=== PATIENT | male | born 1940 | race Asian ===

== ENCOUNTER 2020-07-25 08:43 | Inpatient (IN) | payer MEDICARE, MEDICAID ==
[~2020-07-25] VITALS: Ht 162.6 cm; Wt 53.2 kg
[2020-07-25] MEDS ORDERED: SODIUM CHLORIDE 0.9% 1,000 ML IV ONE (09:00)
[2020-07-25] MEDS ORDERED: cefTRIAXone 1GM/50ML D5W 50 ML IV ONE (09:45)
[2020-07-25 09:48] LABS: Basophils # (auto) 0 10 ^3/uL (0-0.2); Basophils % (auto) 0.2 % (0.0-2.0); Eosinophils # (auto) 0 10 ^3/uL (0-0.8); Eosinophils % (auto) 0.7 % (0.0-7.0); Hematocrit 31.9 % (41.0-53.0); Hemoglobin 10.8 g/dL (13.5-17.5); Lymphocytes # (auto) 0.5 10 ^3/uL (0.4-5.4); Lymphocytes % (auto) 11.4 % (10.0-50.0); Mean Corpuscular Hemoglobin 32.1 pg (28.0-32.0); Mean Corpuscular Volume 94.6 fL (80.0-100.0); Monocytes # (auto) 0.4 10 ^3/uL (0-1.3); Monocytes % (auto) 8.5 % (0.0-12.0); Neutrophils # (auto) 3.7 10 ^3/uL (1.6-8.6); Neutrophils % (auto) 79.2 % (37.0-80.0); Nucleated Red Blood Cells % 0.1 %; Platelet Count (auto) 141 10^3/uL (140-450); Red Blood Cells 3.37 10^6/uL (4.5-5.90); Red Cell Distribution Width 19.9 % (11.8-14.3); White Blood Cell 4.7 10^3/uL (4.4-10.8)
[2020-07-25 10:03] LABS: INR 1.56 (0.9-1.15); Partial Thromboplastin Time 34.7 sec (23.0-31.2)
[2020-07-25 10:12] LABS: Albumin 2.7 g/dL (3.4-5.0); Anion Gap 5 (5-15); Blood Urea Nitrogen 11 mg/dL (7-18); Carbon Dioxide 26 mmol/L (21-32); Chloride 108 mmol/L (98-107); Glucose 123 mg/dL (74-106); Sodium 139 mmol/L (136-145)
[2020-07-25 10:19] LABS: Alanine Aminotransferase 536 U/L (16-61); Alkaline Phosphatase 185 U/L (45-117); Aspartate Aminotransferase 584 U/L (15-37); BUN/Creatinine Ratio 14.3; Bilirubin, Total 6.6 mg/dL (0.2-1.0); GFR African American 126 mL/min; GFR Non-African American 104 mL/min; Total Protein 6.6 g/dL (6.4-8.2)
[2020-07-25 10:34] LABS: Potassium 4.2 mmol/L (3.5-5.1)
[2020-07-25] MEDS: SODIUM CHLORIDE 0.9% 1,000 ML IV SCH (15:15)
[2020-07-25] MEDS ORDERED: MORPHINE SULF INJ 2 MG/ML SYRINGE 1ML IV PRN (15:15)
[2020-07-25] MEDS ORDERED: ONDANSETRON HCL 4 MG/2 ML VIAL IV PRN (15:15)
[2020-07-25] MEDS ORDERED: DOCUSATE SOD 100 MG CAP PO PRN (15:15)
[2020-07-25] MEDS ORDERED: traMADol HCL 50 MG TAB PO PRN (15:15)
[2020-07-25] MEDS ORDERED: NITROGLYCERIN 0.4 MG SL TAB SL PRN (15:15)
[2020-07-25] MEDS ORDERED: IOHEXOL 300 MG/ML 100ML BOTTLE IJ ONE (15:27)
[2020-07-25 15:53] LABS: Urine Bacteria FEW /hpf (None Seen); Urine Blood 1+ /uL (Negative); Urine Mucus FEW (None Seen); Urine WBC 49 /hpf (0 - 3)
--- NOTE | 2020-07-25 17:11 | NUR ---
PATIENT ARRIVED VIA GURNEY WITH NO SIGNS OF DISTRESS OR SOB. PATIENT IS AOX1 TO NAME, PATIENT IS ABLE TO FOLLOW COMMANDS, SKIN IS INTACT, ON ROOM AIR WITH NO SIGNS OF SOB, LUNG SOUNDS THROUGHOUT ANTERIOR DIMINISHED. PATIENT HAS A FARIA IN PLACE WHICH IS DRAINING AND HUNG BELOW. PATIENT PLACED ON TELEMONITOR NUMBER [id number] SHOWING SR IN THE 80'S. WILL CONTINUE WITH POC AND MONITORING PATIENT.
[2020-07-25 17:24] VITALS: BP 151/80
--- NOTE | 2020-07-25 18:00 | NUR ---
PATIENT TRANSPORTED VIA WHEELCHAIR FOR CT ABD PELVIS WITHOUT CONTRAST. PATIENT ABLE TO STAND AND TURN WITH MINIMAL ASSISTANCE TO WHEELCHAIR. NO SIGNS OF DISTRESS OR SOB. WILL AWAIT PATIENT RETURN.
[2020-07-25 18:05] VITALS: BP 157/80
[2020-07-25] MEDS ORDERED: LACTCAP35 OR (18:26)
[2020-07-25] MEDS ORDERED: AMLO5TAB15 PO (18:26)
[2020-07-25] MEDS ORDERED: ZINC220C8 PO (18:26)
[2020-07-25] MEDS ORDERED: POLY33504 PO (18:26)
[2020-07-25] MEDS ORDERED: ACET-1156 PO (18:26)
[2020-07-25] MEDS ORDERED: MIRT15TA PO (18:26)
[2020-07-25] MEDS ORDERED: LIDO5PAD8 EXT (18:26)
[2020-07-25] MEDS ORDERED: MULT-195 OR (18:26)
[2020-07-25] MEDS ORDERED: FINA5TAB4 PO (18:26)
[2020-07-25] MEDS ORDERED: ASCO500C49 PO (18:26)
[2020-07-25] MEDS ORDERED: VITA400C49 PO (18:26)
[2020-07-25] MEDS ORDERED: MELA3TAB27 PO (18:26)
[2020-07-25] MEDS ORDERED: CRAN425C2 OR (18:26)
[2020-07-25] MEDS ORDERED: TAMS0.4C36 PO (18:26)
[2020-07-25] MEDS ORDERED: CYA100I PO (18:26)
[2020-07-25] MEDS ORDERED: DICL-176 PO (18:26)
--- NOTE | 2020-07-25 20:46 | NUR ---
MRSA spec collected Pt alert and cooperative. Tries to communicate much as he can. [place] draining orangey output.
--- NOTE | 2020-07-25 20:57 | NUR ---
No sign of distress. Able to eat sandwich independently and safely, with set up. Noted no dentures, patient dipped sandwich in his cup of water.
[2020-07-25 22:00] VITALS: BP 147/74
[2020-07-26 05:00] VITALS: BP 143/72
--- NOTE | 2020-07-26 07:30 | NUR ---
Opening Shift Note Assumed care of patient, awake and alert. Patient is AOx1 to name, able to follow commands. No S/S of distress/SOB or pain. [place] bag draining, hung below and free of kinks. Instructed on POC and to call for assist PRN, will continue to monitor for changes Q1hr and PRN. Bed is locked and in lowest position. Call light within reach.
[2020-07-26 07:34] LABS: Albumin 2.2 g/dL (3.4-5.0); Potassium 3.8 mmol/L (3.5-5.1)
[2020-07-26 07:42] LABS: BUN/Creatinine Ratio 29.1; Bilirubin, Total 5.4 mg/dL (0.2-1.0); Calcium 7.5 mg/dL (8.5-10.1); Total Protein 5.4 g/dL (6.4-8.2)
[2020-07-26 07:53] LABS: Basophils # (auto) 0 10 ^3/uL (0-0.2); Basophils % (auto) 0.7 % (0.0-2.0); Eosinophils # (auto) 0.1 10 ^3/uL (0-0.8); Eosinophils % (auto) 2.5 % (0.0-7.0); Hematocrit 26.7 % (41.0-53.0); Hemoglobin 9.2 g/dL (13.5-17.5); Lymphocytes # (auto) 0.5 10 ^3/uL (0.4-5.4); Lymphocytes % (auto) 13.7 % (10.0-50.0); Mean Corpuscular Hgb Conc. 34.5 g/dL (32.0-36.0); Mean Corpuscular Volume 95.7 fL (80.0-100.0); Monocytes # (auto) 0.4 10 ^3/uL (0-1.3); Monocytes % (auto) 9.8 % (0.0-12.0); Neutrophils # (auto) 2.7 10 ^3/uL (1.6-8.6); Neutrophils % (auto) 73.3 % (37.0-80.0); Nucleated Red Blood Cells % 0.2 %; Platelet Count (auto) 113 10^3/uL (140-450); Red Blood Cells 2.79 10^6/uL (4.5-5.90); White Blood Cell 3.7 10^3/uL (4.4-10.8)
[2020-07-26 07:54] LABS: Red Cell Distribution Width 20.2 % (11.8-14.3)
[2020-07-26 08:30] VITALS: BP 152/73
[2020-07-26] MEDS: cefTRIAXone 1GM/50ML D5W 50 ML IV SCH (09:33)
[2020-07-26] MEDS: SODIUM CHLORIDE 0.9% 1,000 ML IV SCH (09:33)
[2020-07-26] MEDS ORDERED: FAMOTIDINE 20 MG TAB PO SCH (10:00)
[2020-07-26] MEDS ORDERED: MIRT15TA PO (12:15)
--- NOTE | 2020-07-26 12:34 | NUR ---
PHONE CALL RECEIVED FROM US REGARDING GALLBLADDER US ORDERED. PATIENT NEEDS TO BE NPO FOR 8 HOURS WILL HOLD DINNER. [employer] WILL BE CONDUCTING ORDER AROUND 1900.
[2020-07-26 13:00] VITALS: BP 148/73
[2020-07-26 16:55] VITALS: BP 154/79
--- NOTE | 2020-07-26 18:44 | NUR ---
RADIOLOGY AT BEDSIDE FOR US. PATIENT REFUSED BY PUTTING BLANKET OVER HEAD AND STATING NO TO US. US TECH WILL TRY AGAIN TOMORROW. PATIENT WILL BE KEPT NPO.
[2020-07-26 21:00] VITALS: BP 160/93
[2020-07-26] MEDS ORDERED: cloNIDine HCL 0.1 MG TAB PO ONE (21:30)
--- NOTE | 2020-07-26 21:30 | NUR ---
VS check Elevated BP of 194/97, recheck: 160/93. Noted no PRN med, paged hospitalist. Ordered Clonidine 0.1 mg PO x 1 dose carried out. Patient denied pain. Tele box + cables sent to ICU for recheck/fix monitor keep reflecting zero heart rate but patient is alert with audible heart sound and bounding peripheral pulses. Skin color normal to ethnicity. Breathing with ease.
[2020-07-27] MEDS: SODIUM CHLORIDE 0.9% 1,000 ML IV SCH ×2 (00:35→17:00)
[2020-07-27 05:00] VITALS: BP 147/72
--- NOTE | 2020-07-27 07:45 | NUR ---
Opening Shift Note Assumed care of patient, awake and alert. No S/S of distress/SOB or pain. Instructed on POC and to call for assist PRN. Will continue to monitor for changes Q1hr and PRN.
[2020-07-27] MEDS: FAMOTIDINE 20 MG TAB PO SCH (09:26)
[2020-07-27] MEDS: cefTRIAXone 1GM/50ML D5W 50 ML IV SCH (09:26)
[2020-07-27 09:30] VITALS: BP 154/75
--- NOTE | 2020-07-27 10:00 | NUR ---
ULTRASOUND SPOKE WITH SEVEN FROM US RE: PATIENT TO HAVE PARACENTESIS. WILL CONSENT VIA TRANSLATION PHONE
--- NOTE | 2020-07-27 10:40 | NUR ---
RN LVN ATTEMPTED TRANSLATION OF [place] VIA BLUE TRANSLATION PHONE. PATIENT TELLING RN LVN "LOUDER, HE CAN'T HEAR." VOLUME AT HIGHEST LEVEL. PATIENT TOSSED PHONE ON SIDE OF BED. WILL ATTEMPT AGAIN
--- NOTE | 2020-07-27 10:55 | NUR ---
TRANSLATION BALL WORKER, EVAN CABRAL FOR PATIENT. PATIENT REFUSED PARACENTESIS. WILL NOTIFY
--- NOTE | 2020-07-27 11:20 | NUR ---
MD ROUNDS DR Eulalio IBARRA ROUNDING ON PATIENT. MADE AWARE PATIENT REFUSING PARACENTESIS. NO NEW ORDERS AT THIS TIME. WILL CONTINUE TO MONITOR
[2020-07-27 12:13] LABS: Hepatitis A Ab IgM Negative; Hepatitis B Core IgM Negative
[2020-07-27 12:14] LABS: Hepatitis C Antibody Negative (Negative)
--- NOTE | 2020-07-27 12:16 | NUR ---
CRITICAL LAB KRIS FROM LAB CALLED RE: PATIENT POSITIVE HEPATITIS. MADE AWARE
[2020-07-27 12:17] LABS: Hepatitis B Surface Antigen Positive (Negative)
[2020-07-27 13:00] VITALS: BP 153/87
--- NOTE | 2020-07-27 14:45 | NUR ---
MD ROUNDS DR BURRELL AT BEDSIDE
--- NOTE | 2020-07-27 14:49 | NUR ---
Pt is alert and appears oriented to self but has delayed response with some difficulty verbalizing. Information obtained from facility pt was brought in from. Pt has been residing at [facility] for about a year. Pt came was at a hospital out of the area and transferred to [facility] after discharge. Pt has no none family contacts and cannot verbalize any additional information. Contacted Meli at [facility] and faxed clinical information. Pt accepted for readmission once discharged. Addendum: 07/27/20 at 1453 by MARIELA CHING Amended: Links added.
[2020-07-27] MEDS: MEROPENEM 1GM IVPB 100 ML IV SCH ×2 (15:19→22:00)
[2020-07-27 17:00] VITALS: BP 186/92
--- NOTE | 2020-07-27 17:00 | NUR ---
B/P PATIENT B/P 186/. NO PRN MEDICATIONS IN EMAR. PAGED HOSPITALIST. AWAITING RETURN CALL
--- NOTE | 2020-07-27 17:10 | NUR ---
MD CALL DR LAZO RETURNED CALL RE: PATIENT BP 196/92. NEW ORDERS RECEIVED/WILL CARRY OUT. WILL CONTINUE TO MONITOR
[2020-07-27] MEDS: hydrALAZINE HCL 25 MG TAB PO PRN (17:50)
--- NOTE | 2020-07-27 19:35 | NUR ---
Opening Shift Note Assumed care of patient, awake and alert x 2 hard of hearing medical artist had to repeat themselves many times. No S/S of distress/SOB or pain. Tele box number matches patient all leads are in place. Bed lowered and locked side rails up x 2. Call light and bedside table are within reach. Instructed on POC and to call for assist PRN, will continue to monitor for changes Q1hr and PRN.
[2020-07-27 20:55] VITALS: BP 159/82
--- NOTE | 2020-07-27 22:28 | NUR ---
carried out order
[2020-07-27] MEDS ORDERED: LABETALOL HCL 5 MG/ML 4ML SYRINGE IV ONE (22:45)
[2020-07-28 05:37] VITALS: BP 159/82
[2020-07-28] MEDS: MEROPENEM 1GM IVPB 100 ML IV SCH ×3 (06:04→22:26)
[2020-07-28] MEDS: SODIUM CHLORIDE 0.9% 1,000 ML IV SCH (08:36)
[2020-07-28] MEDS: FAMOTIDINE 20 MG TAB PO SCH (08:36)
[2020-07-28 09:00] VITALS: BP 148/79
--- NOTE | 2020-07-28 10:15 | NUR ---
MD ROUNDS DR BURRELL AT BEDSIDE. BEARING RING ASSEMBLER PRESENT.
--- NOTE | 2020-07-28 10:40 | NUR ---
FARIA FARIA BAG CHANGED D/T LEAKING. PATIENT TOLERATED WELL
[2020-07-28 13:00] VITALS: BP 160/77
--- NOTE | 2020-07-28 13:58 | NUR ---
Nutrition Assessment Notes Please refer to link for full assessment notes. Est Energy needs: 6511-6023 kcals (30-35 kcal/kgBW) d/t elev LFTs Est Protein needs: 55-60 gms/day (1.1-1.2 gm/kgBW) d/t elev LFTs Will continue to monitor and reassess prn. Addendum: 07/28/20 at [address] Amended: Links added.
[2020-07-28 17:00] VITALS: BP 154/92
[2020-07-28] MEDS: hydrALAZINE HCL 25 MG TAB PO PRN (18:08)
--- NOTE | 2020-07-28 18:20 | NUR ---
IV insertion IV access obtained, via clean sterile technique by inserting 20 gauge catheter at LAC after 3 attempts. IV secured properly. No trauma to site. Patient tolerated well. IV removal IV pulled out with catheter fully intact while patient standing up from bedside commode. Pressure dressing applied to site. Patient tolerated well.
--- NOTE | 2020-07-28 19:55 | NUR ---
Opening Shift Note Assumed care of patient, awake and alert x 2 hard of hearing steward/stewardess night had to repeat themselves many times. No S/S of distress/SOB or pain. Tele box number matches patient all leads are in place. Bed lowered and locked side rails up x 2. Call light and bedside table are within reach. Instructed on POC and to call for assist PRN, will continue to monitor for changes Q1hr and PRN.
[2020-07-28 22:00] VITALS: BP 149/59
--- NOTE | 2020-07-28 22:09 | NUR ---
Per Andrey [employer] ACCOUNT EXECUTIVE returned page new order for HEAD CT received; entered in EMAR by this RN
[2020-07-29] MEDS: SODIUM CHLORIDE 0.9% 1,000 ML IV SCH ×2 (02:35→22:51)
[2020-07-29 05:00] VITALS: BP 143/81
[2020-07-29] MEDS: MEROPENEM 1GM IVPB 100 ML IV SCH ×3 (06:00→22:51)
[2020-07-29 09:00] VITALS: BP 145/76
[2020-07-29] MEDS: FAMOTIDINE 20 MG TAB PO SCH (09:43)
--- NOTE | 2020-07-29 10:20 | NUR ---
ROUNDS DR Eulalio IBARRA AT BEDSIDE
[2020-07-29 13:00] VITALS: BP 159/76
[2020-07-29 17:24] VITALS: BP 124/85
--- NOTE | 2020-07-29 19:30 | NUR ---
Opening Shift Note Assumed care of patient, awake and alert. No S/S of distress/SOB or pain. Instructed on POC and to call for assist PRN, will continue to monitor for changes Q1hr and PRN.
[2020-07-29 21:30] VITALS: BP 155/83
[2020-07-30 05:00] VITALS: BP 163/84
[2020-07-30] MEDS: hydrALAZINE HCL 25 MG TAB PO PRN (06:16)
[2020-07-30] MEDS: MEROPENEM 1GM IVPB 100 ML IV SCH ×2 (06:16→14:55)
[2020-07-30 08:40] VITALS: BP 147/72
[2020-07-30] MEDS: FAMOTIDINE 20 MG TAB PO SCH (09:40)
[2020-07-30] MEDS: SODIUM CHLORIDE 0.9% 1,000 ML IV SCH (11:55)
[2020-07-30 12:54] VITALS: BP 149/70
[2020-07-30 15:09] VITALS: BP 149/70
--- NOTE | 2020-07-30 16:07 | NUR ---
D/C Planning Per social service consult for SNF placement. F[facility]ed clinical information to [facility]. Per [facility] with [facility] patient has been accepted to room 14b accepting , Dr. Higginbotham. Transportation has been arranged with [employer] via [employer] at 7pm. ANGELA Monreal was informed.
--- NOTE | 2020-07-30 16:16 | NUR ---
D/C Planning Transportation has been changed to 8pm will informed bedside nurse.
[2020-07-30 16:51] VITALS: BP 132/70
--- NOTE | 2020-07-30 17:10 | NUR ---
report given to ANGELA Lynn in [facility].
--- NOTE | 2020-07-30 19:20 | NUR ---
care endorsed to ANGELA Jimenez pt still [facility].
--- NOTE | 2020-07-30 20:27 | NUR ---
Discharge instructions given as ordered. All questions and concerns addressed. Patient verbalized understanding. IV removed with catheter intact, pressure dressing applied. Medication reconciliation form completed and copy given to patient. Telemetry unit returned to ICU. Report given by Jocelin MILLER from day shift. Patient transported by medical transport with all personal belongings. No distress noted at time of departure.
== END 2020-07-30 20:27 | DRG 871 ==
LOC: ER 08:43 → EDBD 08:43 → TELE 08:44 → TELE-WESTW 17:13
PROVIDERS: ADMIT Nurse Practitioner Acute Care; ATTEND Family Medicine
DX: A41.9 Sepsis, unspecified organism (principal); G93.41 Metabolic encephalopathy; E44.0 Moderate protein-calorie malnutrition; R18.8 Other ascites; J98.11 Atelectasis; N39.0 Urinary tract infection, site not specified; B19.10 Unspecified viral hepatitis B without hepatic coma; D61.818 Other pancytopenia; Z68.1 Body mass index [BMI] 19.9 or less, adult; K72.90 Hepatic failure, unspecified without coma; R62.7 Adult failure to thrive; I10 Essential (primary) hypertension; F20.9 Schizophrenia, unspecified; D64.9 Anemia, unspecified; K74.60 Unspecified cirrhosis of liver; B96.5 Pseudomonas (aeruginosa) (mallei) (pseudomallei) as the cause of diseases classified elsewhere; N40.0 Benign prostatic hyperplasia without lower urinary tract symptoms; J43.9 Emphysema, unspecified; Z87.891 Personal history of nicotine dependence; Z20.828 Contact with and (suspected) exposure to other viral communicable diseases
CPT/HCPCS: 36415; 51702; 70450; 71045; 71250; 74176; 76700; 80053; 80061; 80074; 81001; 82105; 82140; 83690; 83880; 84443; 84484; 85025; 85610; 85730; 87081; 87086; 87088; 87186; 87426; 96361; 96365; G0378; J0696; J2185; J3490